=== PATIENT | female | born 1950 | race African-American/Black ===

== ENCOUNTER 2018-04-23 09:25 | Emergency (ER) | payer BC ==
[2018-04-23] MEDS: HYDROcodone/APAP 5/325MG 1 TAB TABLET PO (10:31)
[2018-04-23] MEDS: NAPROXEN 500 MG TABLET PO (10:31)
[2018-04-23] MEDS: diazePAM 5 MG TABLET PO (10:32)
== END 2018-04-23 11:10 | disposition home or self-care (01) ==
LOC: ER 09:25
DX: S13.9XXA Sprain of joints and ligaments of unspecified parts of neck, initial encounter (principal); S46.912A Strain of unspecified muscle, fascia and tendon at shoulder and upper arm level, left arm, initial encounter; M47.894 Other spondylosis, thoracic region; M47.892 Other spondylosis, cervical region; M19.012 Primary osteoarthritis, left shoulder; E11.9 Type 2 diabetes mellitus without complications; I10 Essential (primary) hypertension; G47.30 Sleep apnea, unspecified; Z98.51 Tubal ligation status; X50.0XXA Overexertion from strenuous movement or load, initial encounter; Y93.89 Activity, other specified; Y92.59 Other trade areas as the place of occurrence of the external cause; Y99.8 Other external cause status
CPT/HCPCS: 72040; 72072; 73030; 99284

== ENCOUNTER 2020-01-12 10:54 | Inpatient (IN) | payer BC ==
[~2020-01-12] VITALS: Ht 157.5 cm; Wt 75.3 kg
[~2020-01-12 10:54] MED LIST: AMLO10TA4 PO; CARV25TA PO; CRESTOR40 MG PO; CYCL10TA2 PO; EZET10TA20 PO; GLYB5TAB3 PO; HYDR-3164 PO; METF10007 PO; NAPR-695 PO; SPIR25TA5 PO; VALS1TAB18 PO; VERA240C2 PO
[2020-01-12] MEDS ORDERED: IV NORMAL SALINE 1000ML BAG 1,000 ML IV SCH (11:18)
[2020-01-12] MEDS ORDERED: methylPREDNISolone SOD SUCC PF 125 MG/2 ML VIAL. IV ONE (11:30)
[2020-01-12] MEDS ORDERED: IPRATRPIUM/ALBUTEROL 0.5/2.5MG 3 ML NEBU. NEB ONE (11:30)
[2020-01-12] MEDS ORDERED: ACETAMINOPHEN 500 MG TABLET PO ONE (11:30)
[2020-01-12 11:52] LABS: BASO % 1 % (0-3); EOS % 0 % (0-3); HEMATOCRIT 37.5 % (36.0-47.0); HEMOGLOBIN 12.4 g/dL (12.0-15.5); LYMPH # 0.5 x10^3/uL (1.0-4.8); LYMPH % 12 % (24-48); MEAN CORPUSCULAR HEMOGLOBIN 31 pg (25-35); MEAN CORPUSCULAR HGB CONC 33 g/dL (31-37); MEAN CORPUSCULAR VOLUME 93 fL (79-100); MONO # 0.5 x10^3/uL (0.0-1.1); MONO % 11 % (0-9); NEUT # 3.4 x10^3/uL (1.8-7.7); NEUT % 76 % (31-73); PLATELET COUNT 177 x10^3/uL (140-400); RED BLOOD COUNT 4.03 x10^6/uL (3.50-5.40); RED CELL DISTRIBUTION WIDTH 13.9 % (11.5-14.5); WHITE BLOOD COUNT 4.5 x10^3/uL (4.0-11.0)
[2020-01-12 11:58] LABS: INFLUENZA A PATIENT POSITIVE (NEGATIVE); INFLUENZA B PATIENT NEGATIVE (NEGATIVE)
--- NOTE | 2020-01-12 11:59 | RAD ---
EXAM: PORTABLE CHEST 1V INDICATION: Cough and fever. TECHNIQUE: Portable upright AP view COMPARISON: 04/29/2016 FINDINGS: The heart size is normal. Great vessels again show tortuosity to the thoracic aorta. There is prominence to the suprahilar vessels, likely reflecting tortuosity of the innominate and subclavian vessels on the right. This is similar to prior. There is no hilar or mediastinal mass. The lungs are clear. There is no pleural effusion or pneumothorax. There are no significant osseous abnormalities. IMPRESSION: No active cardiopulmonary disease. Electronically signed by: Robyn Schmitz MD (01/12/2020 11:56 AM) [facility]
[2020-01-12 12:00] LABS: PROTHROMBIN TIME PATIENT 13.5 SEC (11.7-14.0)
[2020-01-12 12:02] LABS: CALCIUM 9.5 mg/dL (8.5-10.1); CREATININE 1.8 mg/dL (0.6-1.0); GFR 33.8
[2020-01-12 12:07] LABS: ALBUMIN 3.8 g/dL (3.4-5.0); MAGNESIUM 1.8 mg/dL (1.8-2.4); TOTAL BILIRUBIN 0.6 mg/dL (0.2-1.0); TOTAL PROTEIN 7.6 g/dL (6.4-8.2)
[2020-01-12] MEDS ORDERED: POTASSIUM CHLORIDE 20 MEQ TABLET.ER. PO ONE (12:45)
[2020-01-12] MEDS ORDERED: OSELTAMIVIR 30 MG CAPSULE PO ONE (13:00)
--- NOTE | 2020-01-12 13:31 | EKG ---
[facility] [address] [place] [address] Test Date: 2020-01-12 Test Time: 12:39:46 Pat Name: ANKUR TEJEDA Department: Room: Gender: F Digester: : 1950 Requested By: RUDDY RODRIGUEZ Order Number: [id number] Reading MD: Measurements Intervals [address] Rate: 107 P: -3 MT: 130 QRS: -28 QRSD: 80 T: 94 QT: 380 QTc: 513 Interpretive Statements SINUS TACHYCARDIA LEFT ATRIAL ABNORMALITY LEFTWARD AXIS T ABNORMALITY IN HIGH LATERAL LEADS NON SPECIFIC ST DEPRESSION ABNORMAL ECG No previous ECG available for comparison
--- NOTE | 2020-01-12 15:17 | PHYS DOC ---
Past Medical History Past Medical History: Diabetes-Type II, Hypertension, Other Additional Past Medical Histor: SLEEP APNEA Past Surgical History: Tubal ligation Additional Past Surgical Histo: PARTIAL TUBAL Smoking Status: Never Smoker Alcohol Use: None Drug Use: None Adult General Chief Complaint Chief Complaint: FLU SYMPTOM HPI HPI Patient is a 69 year old female with history of hypertension, diabetes type 2, who presents to the ED today complaining of a cough, body aches, chills, intermittent generalized headache, symptoms began 2 days ago. Patient denies any chest pain or shortness of breath. She reports that has been is admitted at [facility] for influenza. Review of Systems Review of Systems Constitutional: Reports subjective fevers, body aches, chills Eyes: Denies change in visual acuity, redness, or eye pain [] HENT: Denies nasal congestion or sore throat [] Respiratory: Reports cough, denies shortness of breath [] Cardiovascular: No additional information not addressed in HPI [] GI: Denies abdominal pain, nausea, vomiting, bloody stools or diarrhea [] : Denies dysuria or hematuria [] Musculoskeletal: Denies back pain or joint pain [] Integument: Denies rash or skin lesions [] Neurologic: Denies headache, focal weakness or sensory changes [] All other systems were reviewed and found to be within normal limits, except as documented in this note. Current Medications Current Medications Current Medications Medications (Trade) Dose Ordered Sig/Brandon Start Time Stop Time Status Last Admin Dose Admin Acetaminophen (Tylenol) 1,000 mg 1X ONCE 01/12/20 11:30 01/12/20 11:31 DC 01/12/20 11:30 1,000 MG Albuterol/ Ipratropium (Duoneb) 3 ml 1X ONCE 01/12/20 11:30 01/12/20 11:31 DC 01/12/20 12:16 3 ML Methylprednisolone Sodium Succinate (SOLU-Medrol 125MG VIAL) 125 mg 1X ONCE 01/12/20 11:30 01/12/20 11:31 DC 01/12/20 11:30 125 MG Ondansetron HCl (Zofran) 4 mg PRN Q8HRS PRN 01/12/20 15:30 01/13/20 15:29 UNV Oseltamivir Phosphate (Tamiflu) 30 mg 1X ONCE 01/12/20 13:00 01/12/20 13:01 DC 01/12/20 13:00 30 MG Potassium Chloride (Klor-Con) 40 meq 1X ONCE 01/12/20 12:45 01/12/20 12:56 DC 01/12/20 12:45 40 MEQ Sodium Chloride 1,000 ml @ 1,500 mls/hr Q40M 01/12/20 11:18 01/12/20 12:17 DC 01/12/20 11:18 1,500 MLS/HR Allergies Allergies Allergies Coded Allergies Type Severity Reaction Last Updated Verified No Known Drug Allergies 04/29/16 No Physical Exam Physical Exam Constitutional: Tired appearing patient. Well developed, well nourished, no acute distress, non-toxic appearance. [] HENT: Normocephalic, atraumatic, bilateral external ears normal, oropharynx moist, no oral exudates, nose normal. [] Eyes: PERRLA, EOMI, conjunctiva normal, no discharge. [] Neck: Normal range of motion, no tenderness, supple, no stridor. [] Cardiovascular:Heart rate regular rhythm, no murmur [] Lungs & Thorax: Bilateral breath sounds clear to auscultation [] Abdomen: Bowel sounds normal, soft, no tenderness, no masses, no pulsatile masses. [] Skin: Warm, dry, no erythema, no rash. [] Back: No tenderness, no CVA tenderness. [] Extremities: No tenderness, no cyanosis, no clubbing, ROM intact, no edema. [] Neurologic: Alert and oriented X 3, normal motor function, normal sensory function, no focal deficits noted. [] Psychologic: Affect normal, judgement normal, mood normal. [] Current Patient Data Vital Signs Vital Signs Date Time Temp Pulse Resp B/P (MAP) Pulse Ox O2 Delivery O2 Flow Rate FiO2 01/12/20 12:17 92 Room Air 01/12/20 11:12 100.0 117 18 153/96 (115) 100.0 Lab Values Laboratory Tests Test 01/12/20 11:20 01/12/20 11:40 Influenza Type A Antigen Positive (NEGATIVE) Influenza Type B Antigen Negative (NEGATIVE) White Blood Count 4.5 x10^3/uL (4.0-11.0) Red Blood Count 4.03 x10^6/uL (3.50-5.40) Hemoglobin 12.4 g/dL (12.0-15.5) Hematocrit 37.5 % (36.0-47.0) Mean Corpuscular Volume 93 fL (79-100) Mean Corpuscular Hemoglobin 31 pg (25-35) Mean Corpuscular Hemoglobin Concent 33 g/dL (31-37) Red Cell Distribution Width 13.9 % (11.5-14.5) Platelet Count 177 x10^3/uL (140-400) Neutrophils (%) (Auto) 76 % (31-73) H Lymphocytes (%) (Auto) 12 % (24-48) L Monocytes (%) (Auto) 11 % (0-9) H Eosinophils (%) (Auto) 0 % (0-3) Basophils (%) (Auto) 1 % (0-3) Neutrophils # (Auto) 3.4 x10^3/uL (1.8-7.7) Lymphocytes # (Auto) 0.5 x10^3/uL (1.0-4.8) L Monocytes # (Auto) 0.5 x10^3/uL (0.0-1.1) Eosinophils # (Auto) 0.0 x10^3/uL (0.0-0.7) Basophils # (Auto) 0.0 x10^3/uL (0.0-0.2) Prothrombin Time 13.5 SEC (11.7-14.0) Prothrombin Time INR 1.1 (0.8-1.1) Activated Partial Thromboplast Time 28 SEC (24-38) Sodium Level 136 mmol/L (136-145) Potassium Level 3.0 mmol/L (3.5-5.1) L Chloride Level 96 mmol/L (98-107) L Carbon Dioxide Level 31 mmol/L (21-32) Anion Gap 9 (6-14) Blood Urea Nitrogen 20 mg/dL (7-20) Creatinine 1.8 mg/dL (0.6-1.0) H Estimated GFR (Cockcroft-Gault) 33.8 BUN/Creatinine Ratio 11 (6-20) Glucose Level 290 mg/dL (70-99) H Lactic Acid Level 2.4 mmol/L (0.4-2.0) H Calcium Level 9.5 mg/dL (8.5-10.1) Magnesium Level 1.8 mg/dL (1.8-2.4) Total Bilirubin 0.6 mg/dL (0.2-1.0) Aspartate Amino Transferase (AST) 26 U/L (15-37) Alanine Aminotransferase (ALT) 27 U/L (14-59) Alkaline Phosphatase 106 U/L (46-116) Creatine Kinase 186 U/L (26-192) Creatine Kinase MB (Mass) 0.6 ng/mL (0.0-3.6) Creatine Kinase MB Relative Index 0.3 % (0-4) Troponin I Quantitative < 0.017 ng/mL (0.000-0.055) RK-Bbz-R-Type Natriuretic Peptide 380 pg/mL (0-124) H Total Protein 7.6 g/dL (6.4-8.2) Albumin 3.8 g/dL (3.4-5.0) Albumin/Globulin Ratio 1.0 (1.0-1.7) Procalcitonin 0.22 ng/mL (0.00-0.10) H Thyroid Stimulating Hormone (TSH) 1.373 uIU/mL (0.358-3.74) Laboratory Tests 01/12/20 11:40 Laboratory Tests 01/12/20 11:40 EKG EKG [address] Billingsley sinus tachycardia HR 107 no STEMI Radiology/Procedures Radiology/Procedures []PROCEDURE: PORTABLE CHEST 1V EXAM: PORTABLE CHEST 1V INDICATION: Cough and fever. TECHNIQUE: Portable upright AP view COMPARISON: 04/29/2016 FINDINGS: The heart size is normal. Great vessels again show tortuosity to the thoracic aorta. There is prominence to the suprahilar vessels, likely reflecting tortuosity of the innominate and subclavian vessels on the right. This is similar to prior. There is no hilar or mediastinal mass. The lungs are clear. There is no pleural effusion or pneumothorax. There are no significant osseous abnormalities. IMPRESSION: No active cardiopulmonary disease. Electronically signed by: Ragini Schmitz MD (01/12/2020 11:56 AM) [facility] DICTATED and SIGNED BY: RAGINI SCHMITZ MD DATE: 01/12/20 8489 Course & Med Decision Making Course & Med Decision Making Pertinent Labs and Imaging studies reviewed. (See chart for details) This is a 69-year-old female patient presenting to the ED today with subjective fevers, body aches, cough, symptoms began yesterday. Vitals on arrival to the ED temperature 100.0, heart rate 117, blood pressure 153/96, O2 sats 95% on room air. Chest x-ray interpreted by radiologist as negative for any acute findings, CBC with a normal WBC, CMP with glucose of 290, history of diabetes type 2, lactic acid 2.4. Potassium 3.0, patient was given oral potassium replacement. Positive for influenza A. Started on Tamiflu Patient was given IV fluids per sepsis protocol. We did not give any antibiotics because the source of infection viral. Spoke with Dr. Maradiaga who accepted patient for admission. Dragon Disclaimer Dragon Disclaimer This electronic medical record was generated, in whole or in part, using a voice recognition dictation system. Departure Departure Impression: Primary Impression: Hyperglycemia Additional Impressions: Influenza A Fever Disposition: 09 ADMITTED INPATIENT Condition: STABLE Referrals: LESIA RODRIGUEZ MD (PCP) Problem Qualifiers Additional Impressions: Fever Fever type: unspecified Qualified Codes: R50.9 - Fever, unspecified MUTUNGA,RUDDY INFORMATION SYSTEMS CONSULTANT Jan 12, 2020 15:17
[2020-01-12] MEDS ORDERED: ONDANSETRON PF 4 MG/2 ML VIAL. IV PRN (15:30)
[2020-01-12] MEDS ORDERED: ACETAMINOPHEN 325 MG TABLET. PO PRN (15:30)
[2020-01-12] MEDS ORDERED: IV NORMAL SALINE 1000ML BAG 1,000 ML IV ONE (15:30)
--- NOTE | 2020-01-12 16:23 | HP ---
ADMIT DATE: 01/12/2020 CHIEF COMPLAINT: Flu symptoms. HISTORY OF PRESENT ILLNESS: The patient is a pleasant 69-year-old female who presented with flu symptoms. She has got cough, body aches, intermittent chills, subjective fevers, has been occurring for a couple of days. We checked her for flu. She is flu A positive. I discussed the case with ER physician. We are going to admit the patient, give her fluids and Tamiflu. PAST MEDICAL HISTORY: Diabetes, hypertension, sleep apnea, tubal ligation. ALLERGIES: None. FAMILY HISTORY: Hypertension. SOCIAL HISTORY: She does not drink, smoke or take drugs. MEDICATIONS: Reviewed, please refer to the MRAD. REVIEW OF SYSTEMS: GENERAL: She complains of body aches and chills. SKIN: No bruising, hair changes or rashes. EYES: No blurred, double or loss of vision. NOSE AND THROAT: No history of nosebleeds, hoarseness or sore throat. HEART: No history of palpitations, chest pain or shortness of breath on exertion. LUNGS: She complains of cough. GASTROINTESTINAL: She complains of abdominal pain. GENITOURINARY: No history of frequency, urgency, hesitancy or nocturia. NEUROLOGIC: Denies history of numbness, tingling, tremor or weakness. PSYCHIATRIC: No history of panic, anxiety or depression. ENDOCRINE: No history of heat or cold intolerance, polyuria or polydipsia. EXTREMITIES: Denies muscle weakness, joint pain, pain on walking or stiffness. PHYSICAL EXAMINATION: VITALS: Within normal limits and are stable. GENERAL: No apparent distress. Alert and oriented. HEENT: Normal cephalic atraumatic, external auditory canals are patent EYES: Extraocular muscles are intact, pupils are equally round and reactive to light and accommodation MUSKULOSKELETAL: Well developed, well nourished, good range of motion ENDOCRINE: No thyromegaly was palpated LYMPHATICS: No cervical chain or axillary nodes were noted HEMATOPOIETIC: No bruising NECK: Supple, no JVD, no thyromegaly was noted. LUNGS: Clear to auscultation in all lung romero without rhonchi or wheezing. HEART: RRR, S1, S2 present. Peripheral pulses intact, no obvious murmurs were noted. ABDOMEN: Soft, nontender. Positive bowel sounds no organomegaly, normal bowel sounds. EXTREMITIES: Without any cyanosis, clubbing, or edema. Pedal pulses intact, Homans sign is negative. NEUROLOGIC: Normal speech, normal tone. A & O x3, moves all extremities, no obvious focal deficits. PSYCHIATRIC: Normal affect, normal mood. Stable. SKIN: No ulcerations or rashes, good skin turgor, no jaundice. VASCULAR: Good capillary refill, neurovascular bundle appears to be intact. LABORATORY DATA: Hematology is normal. Electrolytes are normal. Serology was positive for influenza A. ASSESSMENT AND PLAN: Influenza with flu syndrome. The patient will be admitted. We will give IV fluids, Tamiflu 75 p.o. b.i.d. Home meds, DVT prophylaxis. Full code. LUCHO VICENTE DO DR: DAQUAN/azalia JOB#: [id number] / [id number]
[2020-01-12] MEDS ORDERED: POTA10TA6 PO (18:39)
[2020-01-12] MEDS ORDERED: METF500T16 PO (18:39)
[2020-01-12 19:00] VITALS: BP 162/102
[2020-01-12] MEDS: OSELTAMIVIR 30 MG CAPSULE PO SCH (21:09)
[2020-01-12 23:00] VITALS: BP 150/100
[2020-01-13 03:00] VITALS: BP 169/108
[2020-01-13 04:29] LABS: BASO % 0 % (0-3); EOS % 0 % (0-3); HEMATOCRIT 32.4 % (36.0-47.0); LYMPH # 0.7 x10^3/uL (1.0-4.8); LYMPH % 16 % (24-48); MEAN CORPUSCULAR HEMOGLOBIN 31 pg (25-35); MEAN CORPUSCULAR HGB CONC 34 g/dL (31-37); MEAN CORPUSCULAR VOLUME 93 fL (79-100); MONO # 0.4 x10^3/uL (0.0-1.1); MONO % 10 % (0-9); NEUT # 3.2 x10^3/uL (1.8-7.7); NEUT % 74 % (31-73); PLATELET COUNT 148 x10^3/uL (140-400); RED BLOOD COUNT 3.49 x10^6/uL (3.50-5.40); RED CELL DISTRIBUTION WIDTH 13.4 % (11.5-14.5); WHITE BLOOD COUNT 4.3 x10^3/uL (4.0-11.0)
[2020-01-13 05:01] LABS: CALCIUM 8.8 mg/dL (8.5-10.1); CREATININE 1.5 mg/dL (0.6-1.0); GFR 41.7; POTASSIUM 3.3 mmol/L (3.5-5.1)
[2020-01-13 07:00] VITALS: BP 186/112
[2020-01-13] MEDS ORDERED: INSU100V2 SQ (07:30)
[2020-01-13] MEDS ORDERED: INSU100V6 SQ (07:30)
[2020-01-13] MEDS: OSELTAMIVIR 30 MG CAPSULE PO SCH ×2 (08:03→21:24)
[2020-01-13] MEDS: amLODIPine BESYLATE 10 MG TABLET PO SCH (08:04)
[2020-01-13] MEDS: hydroCHLOROthiazide 12.5 MG CAPSULE PO SCH (08:04)
[2020-01-13] MEDS: CARVEDILOL 12.5 MG TABLET. PO SCH ×2 (08:04→18:30)
[2020-01-13] MEDS: LOSARTAN POTASSIUM 50 MG TABLET. PO SCH (08:05)
[2020-01-13] MEDS: INSULIN LISPRO 300 UNITS/3 ML VIAL. SQ SCH ×2 (09:37→18:35)
[2020-01-13 11:00] VITALS: BP 138/83
--- NOTE | 2020-01-13 13:05 | PDOC ---
[employer] PROGRESS NOTE Chief Complaint Chief Complaint Influenza, Type A History of Present Illness History of Present Illness 01/13/2020 -Pt seen and examined. -Chart reviewed and care discussed with nursing staff. -Pt resting comfortably in bed, NAD. Continues to reports body aches. Will monitor progress. Vitals/I&O Vitals/I&O: Vital Signs Date Time Temp Pulse Resp B/P (MAP) Pulse Ox O2 Delivery O2 Flow Rate FiO2 01/13/20 08:05 80 186/112 01/13/20 07:00 98.1 16 97 Room Air 98.1 I & O 01/12/20 01/12/20 01/13/20 15:00 23:00 07:00 Intake Total 1200 ml 400 ml Balance 1200 ml 400 ml Physical Exam General: Alert, Oriented X3, Cooperative Heart: Regular rate, No murmurs Lungs: Clear Abdomen: Normal bowel sounds, Soft Extremities: No clubbing, No cyanosis Skin: No rashes Labs Labs: Laboratory Tests Test 01/12/20 15:19 01/12/20 20:51 01/13/20 03:25 01/13/20 07:21 Lactic Acid Level 1.6 mmol/L (0.4-2.0) Glucose (Fingerstick) 337 mg/dL (70-99) 221 mg/dL (70-99) White Blood Count 4.3 x10^3/uL (4.0-11.0) Red Blood Count 3.49 x10^6/uL (3.50-5.40) Hemoglobin 11.0 g/dL (12.0-15.5) Hematocrit 32.4 % (36.0-47.0) Mean Corpuscular Volume 93 fL (79-100) Mean Corpuscular Hemoglobin 31 pg (25-35) Mean Corpuscular Hemoglobin Concent 34 g/dL (31-37) Red Cell Distribution Width 13.4 % (11.5-14.5) Platelet Count 148 x10^3/uL (140-400) Neutrophils (%) (Auto) 74 % (31-73) Lymphocytes (%) (Auto) 16 % (24-48) Monocytes (%) (Auto) 10 % (0-9) Eosinophils (%) (Auto) 0 % (0-3) Basophils (%) (Auto) 0 % (0-3) Neutrophils # (Auto) 3.2 x10^3/uL (1.8-7.7) Lymphocytes # (Auto) 0.7 x10^3/uL (1.0-4.8) Monocytes # (Auto) 0.4 x10^3/uL (0.0-1.1) Eosinophils # (Auto) 0.0 x10^3/uL (0.0-0.7) Basophils # (Auto) 0.0 x10^3/uL (0.0-0.2) Sodium Level 139 mmol/L (136-145) Potassium Level 3.3 mmol/L (3.5-5.1) Chloride Level 103 mmol/L (98-107) Carbon Dioxide Level 26 mmol/L (21-32) Anion Gap 10 (6-14) Blood Urea Nitrogen 28 mg/dL (7-20) Creatinine 1.5 mg/dL (0.6-1.0) Estimated GFR (Cockcroft-Gault) 41.7 Glucose Level 286 mg/dL (70-99) Calcium Level 8.8 mg/dL (8.5-10.1) Test 01/13/20 11:31 Glucose (Fingerstick) 123 mg/dL (70-99) Review of Systems Review of Systems: Denies Chest pain or SOA Assessment and Plan Assessmemt and Plan Problems Medical Problems: (1) Fever Status: Acute (2) Hyperglycemia Status: Acute (3) Influenza A Status: Acute ASSESSMENT Influenza, Type A PLAN: -Continue Tamiflu -Continue IVF support -Continue Home meds -Repeat labs -PT/OT -DVT ppx -Full code. Comment Review of Relevant I have reviewed the following items chichi (where applicable) has been applied. Medications: Current Medications Medications (Trade) Dose Ordered Sig/Brandon Route PRN Reason Start Time Stop Time Status Last Admin Dose Admin Acetaminophen (Tylenol) 650 mg PRN Q4HRS PRN PO FEVER 01/12/20 15:30 01/13/20 15:29 01/12/20 18:30 Sodium Chloride 1,000 ml @ 75 mls/hr 1X ONCE IV 01/12/20 15:30 01/13/20 04:49 DC 01/12/20 15:30 Oseltamivir Phosphate (Tamiflu) 30 mg BID PO 01/12/20 21:00 01/16/20 21:01 01/13/20 08:03 Amlodipine Besylate (Norvasc) 10 mg DAILY PO 01/13/20 09:00 01/13/20 08:04 Carvedilol (Coreg) 25 mg BIDWMEALS PO 01/13/20 08:00 01/13/20 08:04 Hydrochlorothiazide (Microzide) 12.5 mg DAILY PO 01/13/20 09:00 01/13/20 08:04 Losartan Potassium (Cozaar) 100 mg DAILY PO 01/13/20 09:00 01/13/20 08:05 Insulin Human Lispro (HumaLOG) 50 units [id number] SQ 01/13/20 09:00 01/13/20 09:37 LUCHO VICENTE III DO Jan 13, 2020 13:05
[2020-01-13 15:00] VITALS: BP 120/77
[2020-01-13 19:00] VITALS: BP 100/67
[2020-01-13 23:00] VITALS: BP 110/68
[2020-01-14 03:00] VITALS: BP 105/69
[2020-01-14 05:01] LABS: BASO % 0 % (0-3); EOS # 0.1 x10^3/uL (0.0-0.7); EOS % 2 % (0-3); HEMATOCRIT 31.2 % (36.0-47.0); HEMOGLOBIN 10.7 g/dL (12.0-15.5); LYMPH # 1.5 x10^3/uL (1.0-4.8); LYMPH % 37 % (24-48); MEAN CORPUSCULAR HEMOGLOBIN 32 pg (25-35); MEAN CORPUSCULAR HGB CONC 34 g/dL (31-37); MEAN CORPUSCULAR VOLUME 92 fL (79-100); MONO # 0.4 x10^3/uL (0.0-1.1); MONO % 9 % (0-9); NEUT # 2.1 x10^3/uL (1.8-7.7); NEUT % 52 % (31-73); PLATELET COUNT 150 x10^3/uL (140-400); RED BLOOD COUNT 3.37 x10^6/uL (3.50-5.40); RED CELL DISTRIBUTION WIDTH 13.9 % (11.5-14.5); WHITE BLOOD COUNT 4.1 x10^3/uL (4.0-11.0)
[2020-01-14 05:41] LABS: CALCIUM 8.7 mg/dL (8.5-10.1); CREATININE 1.5 mg/dL (0.6-1.0); GFR 41.7
[2020-01-14 06:09] LABS: POTASSIUM 2.9 mmol/L (3.5-5.1)
[2020-01-14] MEDS ORDERED: POTASSIUM CHLORIDE 20 MEQ TABLET.ER. PO ONE ×2 (07:00→13:30)
[2020-01-14 07:59] VITALS: BP 126/80
[2020-01-14] MEDS: CARVEDILOL 12.5 MG TABLET. PO SCH ×2 (08:00→17:24)
[2020-01-14] MEDS: OSELTAMIVIR 30 MG CAPSULE PO SCH ×2 (08:20→20:51)
[2020-01-14] MEDS: INSULIN LISPRO 300 UNITS/3 ML VIAL. SQ SCH ×2 (08:28→17:33)
[2020-01-14] MEDS: LOSARTAN POTASSIUM 50 MG TABLET. PO SCH (09:00)
[2020-01-14] MEDS: hydroCHLOROthiazide 12.5 MG CAPSULE PO SCH (09:00)
[2020-01-14] MEDS: amLODIPine BESYLATE 10 MG TABLET PO SCH (09:00)
[2020-01-14] MEDS: IV NORMAL SALINE 1000ML BAG 1,000 ML IV SCH (11:47)
[2020-01-14 11:59] VITALS: BP 108/68
[2020-01-14 13:03] LABS: CALCIUM 8.9 mg/dL (8.5-10.1); CREATININE 1.7 mg/dL (0.6-1.0); GFR 36.1
[2020-01-14 13:17] LABS: POTASSIUM 2.8 mmol/L (3.5-5.1)
--- NOTE | 2020-01-14 13:55 | PDOC ---
[employer] PROGRESS NOTE Chief Complaint Chief Complaint Influenza, Type A History of Present Illness History of Present Illness 01/13/2020 -Pt seen and examined. -Chart reviewed and care discussed with nursing staff. -Pt resting comfortably in bed, NAD. Continues to reports body aches. Will monitor progress. 01/14/2020 -Pt seen and examined. -Chart reviewed and care discussed with nursing staff. -Pt laying comfortably in bed NAD. She denies Body aches, saying she feels better. Her BP dropped to the 90s systolic after receiving a dose of carvedilol yesterday. She is normotensive now. She reports being on all 4 BP medications for a long time with out hypotensive episodes/dizziness. Vitals/I&O Vitals/I&O: Vital Signs Date Time Temp Pulse Resp B/P (MAP) Pulse Ox O2 Delivery O2 Flow Rate FiO2 01/14/20 11:59 98.5 75 20 108/68 (81) 96 Room Air 98.5 I & O 01/13/20 01/13/20 01/14/20 15:00 23:00 07:00 Intake Total 100 ml 460 ml 500 ml Balance 100 ml 460 ml 500 ml Physical Exam General: Alert, Oriented X3, Cooperative Heart: Regular rate, No murmurs Lungs: Clear Abdomen: Normal bowel sounds, Soft Extremities: No clubbing, No cyanosis Skin: No rashes Labs Labs: Laboratory Tests Test 01/13/20 16:58 01/13/20 21:35 01/14/20 03:35 01/14/20 08:00 Glucose (Fingerstick) 197 mg/dL (70-99) 90 mg/dL (70-99) 241 mg/dL (70-99) White Blood Count 4.1 x10^3/uL (4.0-11.0) Red Blood Count 3.37 x10^6/uL (3.50-5.40) Hemoglobin 10.7 g/dL (12.0-15.5) Hematocrit 31.2 % (36.0-47.0) Mean Corpuscular Volume 92 fL (79-100) Mean Corpuscular Hemoglobin 32 pg (25-35) Mean Corpuscular Hemoglobin Concent 34 g/dL (31-37) Red Cell Distribution Width 13.9 % (11.5-14.5) Platelet Count 150 x10^3/uL (140-400) Neutrophils (%) (Auto) 52 % (31-73) Lymphocytes (%) (Auto) 37 % (24-48) Monocytes (%) (Auto) 9 % (0-9) Eosinophils (%) (Auto) 2 % (0-3) Basophils (%) (Auto) 0 % (0-3) Neutrophils # (Auto) 2.1 x10^3/uL (1.8-7.7) Lymphocytes # (Auto) 1.5 x10^3/uL (1.0-4.8) Monocytes # (Auto) 0.4 x10^3/uL (0.0-1.1) Eosinophils # (Auto) 0.1 x10^3/uL (0.0-0.7) Basophils # (Auto) 0.0 x10^3/uL (0.0-0.2) Sodium Level 139 mmol/L (136-145) Potassium Level 2.9 mmol/L (3.5-5.1) Chloride Level 100 mmol/L (98-107) Carbon Dioxide Level 28 mmol/L (21-32) Anion Gap 11 (6-14) Blood Urea Nitrogen 33 mg/dL (7-20) Creatinine 1.5 mg/dL (0.6-1.0) Estimated GFR (Cockcroft-Gault) 41.7 Glucose Level 174 mg/dL (70-99) Calcium Level 8.7 mg/dL (8.5-10.1) Test 01/14/20 12:00 01/14/20 12:40 Glucose (Fingerstick) 96 mg/dL (70-99) Sodium Level 139 mmol/L (136-145) Potassium Level 2.8 mmol/L (3.5-5.1) Chloride Level 101 mmol/L (98-107) Carbon Dioxide Level 30 mmol/L (21-32) Anion Gap 8 (6-14) Blood Urea Nitrogen 32 mg/dL (7-20) Creatinine 1.7 mg/dL (0.6-1.0) Estimated GFR (Cockcroft-Gault) 36.1 Glucose Level 110 mg/dL (70-99) Calcium Level 8.9 mg/dL (8.5-10.1) Review of Systems Review of Systems: Denies Chest pain or SOA Assessment and Plan Assessmemt and Plan Problems Medical Problems: (1) Fever Status: Acute (2) Hyperglycemia Status: Acute (3) Influenza A Status: Acute ASSESSMENT: Influenza, Type A PLAN: -Potassium 40 meq, with recheck -Restart IVF at 75/hr -Hold Losartan, amlodipine, and HCTZ for now -Continue Carvedilol BID, recheck BP -Continue Tamiflu -Continue IVF support -Continue Home meds -Repeat labs -PT/OT -DVT ppx -Full code. Comment Review of Relevant I have reviewed the following items chichi (where applicable) has been applied. Medications: Current Medications Medications (Trade) Dose Ordered Sig/Brandon Route PRN Reason Start Time Stop Time Status Last Admin Dose Admin Insulin Human Lispro (HumaLOG) 35 units DAILYWSUP SQ 01/13/20 17:00 01/13/20 18:35 Potassium Chloride (Klor-Con) 40 meq 1X ONCE PO 01/14/20 07:00 01/14/20 07:01 DC 01/14/20 06:41 Sodium Chloride 1,000 ml @ 75 mls/hr [id number] IV 01/14/20 11:15 01/14/20 11:47 LUCHO VICENTE III DO Jan 14, 2020 13:55
[2020-01-14 15:59] VITALS: BP 146/80
[2020-01-14 19:00] VITALS: BP 125/74
[2020-01-14 23:00] VITALS: BP 110/68
[2020-01-15] MEDS: IV NORMAL SALINE 1000ML BAG 1,000 ML IV SCH ×2 (02:18→13:55)
[2020-01-15 03:00] VITALS: BP 96/58
[2020-01-15 05:25] LABS: CALCIUM 8.4 mg/dL (8.5-10.1); CREATININE 1.3 mg/dL (0.6-1.0); GFR 49.1; POTASSIUM 3.4 mmol/L (3.5-5.1)
[2020-01-15 05:35] LABS: BASO % 1 % (0-3); EOS # 0.2 x10^3/uL (0.0-0.7); EOS % 5 % (0-3); HEMOGLOBIN 10.2 g/dL (12.0-15.5); LYMPH # 1.5 x10^3/uL (1.0-4.8); LYMPH % 43 % (24-48); MEAN CORPUSCULAR HEMOGLOBIN 32 pg (25-35); MEAN CORPUSCULAR HGB CONC 34 g/dL (31-37); MEAN CORPUSCULAR VOLUME 93 fL (79-100); MONO # 0.3 x10^3/uL (0.0-1.1); MONO % 10 % (0-9); NEUT # 1.4 x10^3/uL (1.8-7.7); NEUT % 41 % (31-73); PLATELET COUNT 150 x10^3/uL (140-400); RED BLOOD COUNT 3.23 x10^6/uL (3.50-5.40); RED CELL DISTRIBUTION WIDTH 13.7 % (11.5-14.5); WHITE BLOOD COUNT 3.4 x10^3/uL (4.0-11.0)
[2020-01-15 07:00] VITALS: BP 167/93
[2020-01-15] MEDS: OSELTAMIVIR 30 MG CAPSULE PO SCH (08:20)
[2020-01-15] MEDS: CARVEDILOL 12.5 MG TABLET. PO SCH (08:20)
--- NOTE | 2020-01-15 08:22 | PDOC ---
PROGRESS NOTES Chief Complaint Chief Complaint Influenza, Type A DM2 HLD HTN History of Present Illness History of Present Illness Ms Merrill is a 69 year old female with history of hypertension, diabetes type 2, who presents to the ED 01/12/2020 complaining of a cough, body aches, chills, intermittent generalized headache, symptoms began 2 days ago. Patient denies any chest pain or shortness of breath. She reports that her with has been is admitted at [facility] for [facility]. She tested positive for influenza A. : Pt resting comfortably in bed, NAD. Continues to reports body aches. Will monitor progress. 01/13:Pt laying comfortably in bed NAD. She denies Body aches, saying she feels better. Her BP dropped to the 90s systolic after receiving a dose of carvedilol yesterday. She is normotensive now. She reports being on all 4 BP medications for a long time with out hypotensive episodes/dizziness. Feeling much better, insulin and BP meds adjusted. She wishes to go home to recover. Slept well last night. Vitals Vitals Vital Signs Date Time Temp Pulse Resp B/P (MAP) Pulse Ox O2 Delivery O2 Flow Rate FiO2 01/15/20 03:00 97.1 63 16 96/58 (71) 96 Room Air 97.1 Physical Exam General: Alert, Oriented X3, Cooperative Heart: Regular rate, No murmurs Lungs: Clear Abdomen: Normal bowel sounds, Soft Extremities: No clubbing, No cyanosis Skin: No rashes Labs LABS Laboratory Tests Test 01/14/20 12:00 01/14/20 12:40 01/14/20 17:23 01/14/20 20:17 Glucose (Fingerstick) 96 mg/dL (70-99) 210 mg/dL (70-99) 175 mg/dL (70-99) Sodium Level 139 mmol/L (136-145) Potassium Level 2.8 mmol/L (3.5-5.1) Chloride Level 101 mmol/L (98-107) Carbon Dioxide Level 30 mmol/L (21-32) Anion Gap 8 (6-14) Blood Urea Nitrogen 32 mg/dL (7-20) Creatinine 1.7 mg/dL (0.6-1.0) Estimated GFR (Cockcroft-Gault) 36.1 Glucose Level 110 mg/dL (70-99) Calcium Level 8.9 mg/dL (8.5-10.1) Test 01/15/20 03:45 01/15/20 03:48 01/15/20 08:05 Sodium Level 141 mmol/L (136-145) Potassium Level 3.4 mmol/L (3.5-5.1) Chloride Level 105 mmol/L (98-107) Carbon Dioxide Level 26 mmol/L (21-32) Anion Gap 10 (6-14) Blood Urea Nitrogen 27 mg/dL (7-20) Creatinine 1.3 mg/dL (0.6-1.0) Estimated GFR (Cockcroft-Gault) 49.1 Glucose Level 200 mg/dL (70-99) Calcium Level 8.4 mg/dL (8.5-10.1) White Blood Count 3.4 x10^3/uL (4.0-11.0) Red Blood Count 3.23 x10^6/uL (3.50-5.40) Hemoglobin 10.2 g/dL (12.0-15.5) Hematocrit 30.0 % (36.0-47.0) Mean Corpuscular Volume 93 fL (79-100) Mean Corpuscular Hemoglobin 32 pg (25-35) Mean Corpuscular Hemoglobin Concent 34 g/dL (31-37) Red Cell Distribution Width 13.7 % (11.5-14.5) Platelet Count 150 x10^3/uL (140-400) Neutrophils (%) (Auto) 41 % (31-73) Lymphocytes (%) (Auto) 43 % (24-48) Monocytes (%) (Auto) 10 % (0-9) Eosinophils (%) (Auto) 5 % (0-3) Basophils (%) (Auto) 1 % (0-3) Neutrophils # (Auto) 1.4 x10^3/uL (1.8-7.7) Lymphocytes # (Auto) 1.5 x10^3/uL (1.0-4.8) Monocytes # (Auto) 0.3 x10^3/uL (0.0-1.1) Eosinophils # (Auto) 0.2 x10^3/uL (0.0-0.7) Basophils # (Auto) 0.0 x10^3/uL (0.0-0.2) Glucose (Fingerstick) 229 mg/dL (70-99) Assessment and Plan Assessmemt and Plan Problems Medical Problems: (1) Fever Status: Acute (2) Hyperglycemia Status: Acute (3) Influenza A Status: Acute Comment Review of Relevant I have reviewed the following items chichi (where applicable) has been applied. Labs Laboratory Tests Test 01/13/20 11:31 01/13/20 16:58 01/13/20 21:35 01/14/20 03:35 Glucose (Fingerstick) 123 mg/dL (70-99) 197 mg/dL (70-99) 90 mg/dL (70-99) White Blood Count 4.1 x10^3/uL (4.0-11.0) Red Blood Count 3.37 x10^6/uL (3.50-5.40) Hemoglobin 10.7 g/dL (12.0-15.5) Hematocrit 31.2 % (36.0-47.0) Mean Corpuscular Volume 92 fL (79-100) Mean Corpuscular Hemoglobin 32 pg (25-35) Mean Corpuscular Hemoglobin Concent 34 g/dL (31-37) Red Cell Distribution Width 13.9 % (11.5-14.5) Platelet Count 150 x10^3/uL (140-400) Neutrophils (%) (Auto) 52 % (31-73) Lymphocytes (%) (Auto) 37 % (24-48) Monocytes (%) (Auto) 9 % (0-9) Eosinophils (%) (Auto) 2 % (0-3) Basophils (%) (Auto) 0 % (0-3) Neutrophils # (Auto) 2.1 x10^3/uL (1.8-7.7) Lymphocytes # (Auto) 1.5 x10^3/uL (1.0-4.8) Monocytes # (Auto) 0.4 x10^3/uL (0.0-1.1) Eosinophils # (Auto) 0.1 x10^3/uL (0.0-0.7) Basophils # (Auto) 0.0 x10^3/uL (0.0-0.2) Sodium Level 139 mmol/L (136-145) Potassium Level 2.9 mmol/L (3.5-5.1) Chloride Level 100 mmol/L (98-107) Carbon Dioxide Level 28 mmol/L (21-32) Anion Gap 11 (6-14) Blood Urea Nitrogen 33 mg/dL (7-20) Creatinine 1.5 mg/dL (0.6-1.0) Estimated GFR (Cockcroft-Gault) 41.7 Glucose Level 174 mg/dL (70-99) Calcium Level 8.7 mg/dL (8.5-10.1) Test 01/14/20 08:00 01/14/20 12:00 01/14/20 12:40 01/14/20 17:23 Glucose (Fingerstick) 241 mg/dL (70-99) 96 mg/dL (70-99) 210 mg/dL (70-99) Sodium Level 139 mmol/L (136-145) Potassium Level 2.8 mmol/L (3.5-5.1) Chloride Level 101 mmol/L (98-107) Carbon Dioxide Level 30 mmol/L (21-32) Anion Gap 8 (6-14) Blood Urea Nitrogen 32 mg/dL (7-20) Creatinine 1.7 mg/dL (0.6-1.0) Estimated GFR (Cockcroft-Gault) 36.1 Glucose Level 110 mg/dL (70-99) Calcium Level 8.9 mg/dL (8.5-10.1) Test 01/14/20 20:17 01/15/20 03:45 01/15/20 03:48 01/15/20 08:05 Glucose (Fingerstick) 175 mg/dL (70-99) 229 mg/dL (70-99) Sodium Level 141 mmol/L (136-145) Potassium Level 3.4 mmol/L (3.5-5.1) Chloride Level 105 mmol/L (98-107) Carbon Dioxide Level 26 mmol/L (21-32) Anion Gap 10 (6-14) Blood Urea Nitrogen 27 mg/dL (7-20) Creatinine 1.3 mg/dL (0.6-1.0) Estimated GFR (Cockcroft-Gault) 49.1 Glucose Level 200 mg/dL (70-99) Calcium Level 8.4 mg/dL (8.5-10.1) White Blood Count 3.4 x10^3/uL (4.0-11.0) Red Blood Count 3.23 x10^6/uL (3.50-5.40) Hemoglobin 10.2 g/dL (12.0-15.5) Hematocrit 30.0 % (36.0-47.0) Mean Corpuscular Volume 93 fL (79-100) Mean Corpuscular Hemoglobin 32 pg (25-35) Mean Corpuscular Hemoglobin Concent 34 g/dL (31-37) Red Cell Distribution Width 13.7 % (11.5-14.5) Platelet Count 150 x10^3/uL (140-400) Neutrophils (%) (Auto) 41 % (31-73) Lymphocytes (%) (Auto) 43 % (24-48) Monocytes (%) (Auto) 10 % (0-9) Eosinophils (%) (Auto) 5 % (0-3) Basophils (%) (Auto) 1 % (0-3) Neutrophils # (Auto) 1.4 x10^3/uL (1.8-7.7) Lymphocytes # (Auto) 1.5 x10^3/uL (1.0-4.8) Monocytes # (Auto) 0.3 x10^3/uL (0.0-1.1) Eosinophils # (Auto) 0.2 x10^3/uL (0.0-0.7) Basophils # (Auto) 0.0 x10^3/uL (0.0-0.2) Laboratory Tests Test 01/14/20 12:00 01/14/20 12:40 01/14/20 17:23 01/14/20 20:17 Glucose (Fingerstick) 96 mg/dL (70-99) 210 mg/dL (70-99) 175 mg/dL (70-99) Sodium Level 139 mmol/L (136-145) Potassium Level 2.8 mmol/L (3.5-5.1) Chloride Level 101 mmol/L (98-107) Carbon Dioxide Level 30 mmol/L (21-32) Anion Gap 8 (6-14) Blood Urea Nitrogen 32 mg/dL (7-20) Creatinine 1.7 mg/dL (0.6-1.0) Estimated GFR (Cockcroft-Gault) 36.1 Glucose Level 110 mg/dL (70-99) Calcium Level 8.9 mg/dL (8.5-10.1) Test 01/15/20 03:45 01/15/20 03:48 01/15/20 08:05 Sodium Level 141 mmol/L (136-145) Potassium Level 3.4 mmol/L (3.5-5.1) Chloride Level 105 mmol/L (98-107) Carbon Dioxide Level 26 mmol/L (21-32) Anion Gap 10 (6-14) Blood Urea Nitrogen 27 mg/dL (7-20) Creatinine 1.3 mg/dL (0.6-1.0) Estimated GFR (Cockcroft-Gault) 49.1 Glucose Level 200 mg/dL (70-99) Calcium Level 8.4 mg/dL (8.5-10.1) White Blood Count 3.4 x10^3/uL (4.0-11.0) Red Blood Count 3.23 x10^6/uL (3.50-5.40) Hemoglobin 10.2 g/dL (12.0-15.5) Hematocrit 30.0 % (36.0-47.0) Mean Corpuscular Volume 93 fL (79-100) Mean Corpuscular Hemoglobin 32 pg (25-35) Mean Corpuscular Hemoglobin Concent 34 g/dL (31-37) Red Cell Distribution Width 13.7 % (11.5-14.5) Platelet Count 150 x10^3/uL (140-400) Neutrophils (%) (Auto) 41 % (31-73) Lymphocytes (%) (Auto) 43 % (24-48) Monocytes (%) (Auto) 10 % (0-9) Eosinophils (%) (Auto) 5 % (0-3) Basophils (%) (Auto) 1 % (0-3) Neutrophils # (Auto) 1.4 x10^3/uL (1.8-7.7) Lymphocytes # (Auto) 1.5 x10^3/uL (1.0-4.8) Monocytes # (Auto) 0.3 x10^3/uL (0.0-1.1) Eosinophils # (Auto) 0.2 x10^3/uL (0.0-0.7) Basophils # (Auto) 0.0 x10^3/uL (0.0-0.2) Glucose (Fingerstick) 229 mg/dL (70-99) Microbiology 01/12/20 Blood Culture - Preliminary, Resulted NO GROWTH AFTER 2 DAYS Medications Current Medications Sodium Chloride 1,000 ml @ 1,500 mls/hr Q40M IV Last administered on 01/12/20at 11:18; Start 01/12/20 at 11:18; Stop 01/12/20 at 12:17; Status DC Albuterol/ Ipratropium (Duoneb) 3 ml 1X ONCE NEB Last administered on 01/12/20at 12:16; Start 01/12/20 at 11:30; Stop 01/12/20 at 11:31; Status DC Methylprednisolone Sodium Succinate (SOLU-Medrol 125MG VIAL) 125 mg 1X ONCE IV Last administered on 01/12/20at 11:30; Start 01/12/20 at 11:30; Stop 01/12/20 at 11:31; Status DC Acetaminophen (Tylenol) 1,000 mg 1X ONCE PO Last administered on 01/12/20at 11:30; Start 01/12/20 at 11:30; Stop 01/12/20 at 11:31; Status DC Oseltamivir Phosphate (Tamiflu) 30 mg 1X ONCE PO Last administered on 01/12/20at 13:00; Start 01/12/20 at 13:00; Stop 01/12/20 at 13:01; Status DC Potassium Chloride (Klor-Con) 40 meq 1X ONCE PO Last administered on 01/12/20at 12:45; Start 01/12/20 at 12:45; Stop 01/12/20 at 12:56; Status DC Ondansetron HCl (Zofran) 4 mg PRN Q8HRS PRN IV NAUSEA/VOMITING; Start 01/12/20 at 15:30; Stop 01/13/20 at 15:29; Status DC Acetaminophen (Tylenol) 650 mg PRN Q4HRS PRN PO FEVER Last administered on 01/12/20at 18:30; Start 01/12/20 at 15:30; Stop 01/13/20 at 15:29; Status DC Sodium Chloride 1,000 ml @ 75 mls/hr 1X ONCE IV Last administered on 01/12/20at 15:30; Start 01/12/20 at 15:30; Stop 01/13/20 at 04:49; Status DC Oseltamivir Phosphate (Tamiflu) 30 mg BID PO Last administered on 01/14/20at 20:51; Start 01/12/20 at 21:00; Stop 01/16/20 at 21:01 Amlodipine Besylate (Norvasc) 10 mg DAILY PO Last administered on 01/13/20at 08:04; Start 01/13/20 at 09:00; Stop 01/14/20 at 11:41; Status DC Carvedilol (Coreg) 25 mg BIDWMEALS PO Last administered on 01/14/20at 17:24; Start 01/13/20 at 08:00 Hydrochlorothiazide (Microzide) 12.5 mg DAILY PO Last administered on 01/13/20at 08:04; Start 01/13/20 at 09:00; Stop 01/14/20 at 11:41; Status DC Losartan Potassium (Cozaar) 100 mg DAILY PO Last administered on 01/13/20at 08:05; Start 01/13/20 at 09:00; Stop 01/14/20 at 11:57; Status DC Insulin Human Lispro (HumaLOG) 35 units DAILYWSUP SQ Last administered on 01/14/20at 17:33; Start 01/13/20 at 17:00 Insulin Human Lispro (HumaLOG) 50 units DAILYWBKFT SQ Last administered on 01/14/20at 08:28; Start 01/13/20 at 09:00 Potassium Chloride (Klor-Con) 40 meq 1X ONCE PO Last administered on 01/14/20at 06:41; Start 01/14/20 at 07:00; Stop 01/14/20 at 07:01; Status DC Sodium Chloride 1,000 ml @ 75 mls/hr [id number] IV Last administered on 01/15/20at 02:18; Start 01/14/20 at 11:15 Potassium Chloride (Klor-Con) 40 meq 1X ONCE PO Last administered on 01/14/20at 15:22; Start 01/14/20 at 13:30; Stop 01/14/20 at 13:31; Status DC Active Scripts Active Reported Humalog (Insulin Lispro) 100 Unit/1 Ml Vial 35 Unit SQ DAILYWSUP Humalog (Insulin Lispro) 100 Unit/1 Ml Vial 50 Unit SQ DAILYWBKFT Metformin Hcl 500 Mg Tablet 500 Mg PO BIDWMEALS Klor-Con 10 (Potassium Chloride) 10 Meq Tablet.er 10 Meq PO BID Norvasc (Amlodipine Besylate) 10 Mg Tablet 1 Tab PO DAILY Coreg (Carvedilol) 25 Mg Tablet 1 Tab PO BID Diovan Hct 320-12.5 Mg Tab (Valsartan/Hydrochlorothiazide) 1 Each Tablet 1 Tab PO DAILY Zetia (Ezetimibe) 10 Mg Tablet 1 Tab PO DAILY Crestor (Rosuvastatin Calcium) 40 Mg Tablet 1 Tab PO DAILY Vitals/I & O Vital Sign - Last 24 Hours 01/14/20 01/14/20 01/14/20 01/14/20 09:00 11:59 15:59 17:24 Temp 98.5 98.6 98.5 98.6 Pulse 75 75 73 92 Resp 20 20 B/P (MAP) 108/68 108/68 (81) 146/80 (102) 141/90 Pulse Ox 96 98 O2 Delivery Room Air Room Air 01/14/20 01/14/20 01/14/20 01/15/20 19:00 20:21 23:00 03:00 Temp 98.3 98.1 97.1 98.3 98.1 97.1 Pulse 74 78 63 Resp 16 17 16 B/P (MAP) 125/74 (91) 110/68 (82) 96/58 (71) Pulse Ox 96 96 96 O2 Delivery Room Air Room Air Room Air Room Air Intake and Output 01/14/20 01/14/20 01/15/20 15:00 23:00 07:00 Intake Total 400 ml 1100 ml Balance 400 ml 1100 ml BONG LIAO MD Jan 15, 2020 08:22
[2020-01-15] MEDS ORDERED: POTASSIUM CHLORIDE 10 MEQ TABLET.ER. PO SCH (08:30)
[2020-01-15] MEDS ORDERED: POTASSIUM CHLORIDE 20 MEQ TABLET.ER. PO ONE (08:30)
[2020-01-15] MEDS ORDERED: DEXTROSE 50% 25 GM / 50ML DISP.SYRIN. IV PRN (08:30)
[2020-01-15] MEDS ORDERED: INSULIN NPH/REG INSULIN 70/30 300 UNITS/3 ML INSULN.PEN. SQ SCH ×2 (09:00)
[2020-01-15 09:31] LABS: PLT ESTIMATE ADEQUATE (ADEQUATE)
[2020-01-15 11:00] VITALS: BP 131/78
[2020-01-15] MEDS ORDERED: INSULIN LISPRO 300 UNITS/3 ML VIAL. SQ SCH (11:30)
[2020-01-15] MEDS ORDERED: OSEL30CA PO (13:20)
--- NOTE | 2020-01-15 13:24 | PDOC3 ---
Discharge Summary Visit Information Date of Admission: Jan 12, 2020 Date of Discharge: Jan 15, 2020 Admitting Diagnosis: Influenza A Final Diagnosis Problems Medical Problems: (1) Fever Status: Acute (2) Hyperglycemia Status: Acute (3) Influenza A Status: Acute Brief Hospital Course Allergies Allergies Coded Allergies Type Severity Reaction Last Updated Verified No Known Drug Allergies 04/29/16 No Vital Signs Vital Signs Date Time Temp Pulse Resp B/P (MAP) Pulse Ox O2 Delivery O2 Flow Rate FiO2 01/15/20 11:00 98.4 70 16 131/78 (95) 96 Room Air 98.4 Lab Results Laboratory Tests Test 01/13/20 16:58 01/13/20 21:35 01/14/20 03:35 01/14/20 08:00 Glucose (Fingerstick) 197 mg/dL (70-99) 90 mg/dL (70-99) 241 mg/dL (70-99) White Blood Count 4.1 x10^3/uL (4.0-11.0) Red Blood Count 3.37 x10^6/uL (3.50-5.40) Hemoglobin 10.7 g/dL (12.0-15.5) Hematocrit 31.2 % (36.0-47.0) Mean Corpuscular Volume 92 fL (79-100) Mean Corpuscular Hemoglobin 32 pg (25-35) Mean Corpuscular Hemoglobin Concent 34 g/dL (31-37) Red Cell Distribution Width 13.9 % (11.5-14.5) Platelet Count 150 x10^3/uL (140-400) Neutrophils (%) (Auto) 52 % (31-73) Lymphocytes (%) (Auto) 37 % (24-48) Monocytes (%) (Auto) 9 % (0-9) Eosinophils (%) (Auto) 2 % (0-3) Basophils (%) (Auto) 0 % (0-3) Neutrophils # (Auto) 2.1 x10^3/uL (1.8-7.7) Lymphocytes # (Auto) 1.5 x10^3/uL (1.0-4.8) Monocytes # (Auto) 0.4 x10^3/uL (0.0-1.1) Eosinophils # (Auto) 0.1 x10^3/uL (0.0-0.7) Basophils # (Auto) 0.0 x10^3/uL (0.0-0.2) Sodium Level 139 mmol/L (136-145) Potassium Level 2.9 mmol/L (3.5-5.1) Chloride Level 100 mmol/L (98-107) Carbon Dioxide Level 28 mmol/L (21-32) Anion Gap 11 (6-14) Blood Urea Nitrogen 33 mg/dL (7-20) Creatinine 1.5 mg/dL (0.6-1.0) Estimated GFR (Cockcroft-Gault) 41.7 Glucose Level 174 mg/dL (70-99) Calcium Level 8.7 mg/dL (8.5-10.1) Test 01/14/20 12:00 01/14/20 12:40 01/14/20 17:23 01/14/20 20:17 Glucose (Fingerstick) 96 mg/dL (70-99) 210 mg/dL (70-99) 175 mg/dL (70-99) Sodium Level 139 mmol/L (136-145) Potassium Level 2.8 mmol/L (3.5-5.1) Chloride Level 101 mmol/L (98-107) Carbon Dioxide Level 30 mmol/L (21-32) Anion Gap 8 (6-14) Blood Urea Nitrogen 32 mg/dL (7-20) Creatinine 1.7 mg/dL (0.6-1.0) Estimated GFR (Cockcroft-Gault) 36.1 Glucose Level 110 mg/dL (70-99) Calcium Level 8.9 mg/dL (8.5-10.1) Test 01/15/20 03:45 01/15/20 03:48 01/15/20 08:05 01/15/20 11:36 Sodium Level 141 mmol/L (136-145) Potassium Level 3.4 mmol/L (3.5-5.1) Chloride Level 105 mmol/L (98-107) Carbon Dioxide Level 26 mmol/L (21-32) Anion Gap 10 (6-14) Blood Urea Nitrogen 27 mg/dL (7-20) Creatinine 1.3 mg/dL (0.6-1.0) Estimated GFR (Cockcroft-Gault) 49.1 Glucose Level 200 mg/dL (70-99) Calcium Level 8.4 mg/dL (8.5-10.1) White Blood Count 3.4 x10^3/uL (4.0-11.0) Red Blood Count 3.23 x10^6/uL (3.50-5.40) Hemoglobin 10.2 g/dL (12.0-15.5) Hematocrit 30.0 % (36.0-47.0) Mean Corpuscular Volume 93 fL (79-100) Mean Corpuscular Hemoglobin 32 pg (25-35) Mean Corpuscular Hemoglobin Concent 34 g/dL (31-37) Red Cell Distribution Width 13.7 % (11.5-14.5) Platelet Count 150 x10^3/uL (140-400) Neutrophils (%) (Auto) 41 % (31-73) Lymphocytes (%) (Auto) 43 % (24-48) Monocytes (%) (Auto) 10 % (0-9) Eosinophils (%) (Auto) 5 % (0-3) Basophils (%) (Auto) 1 % (0-3) Neutrophils # (Auto) 1.4 x10^3/uL (1.8-7.7) Lymphocytes # (Auto) 1.5 x10^3/uL (1.0-4.8) Monocytes # (Auto) 0.3 x10^3/uL (0.0-1.1) Eosinophils # (Auto) 0.2 x10^3/uL (0.0-0.7) Basophils # (Auto) 0.0 x10^3/uL (0.0-0.2) Platelet Estimate Adequate (ADEQUATE) Large Platelets Few Giant Platelets Occ Glucose (Fingerstick) 229 mg/dL (70-99) 108 mg/dL (70-99) Laboratory Tests Test 01/14/20 17:23 01/14/20 20:17 01/15/20 03:45 01/15/20 03:48 Glucose (Fingerstick) 210 mg/dL (70-99) 175 mg/dL (70-99) Sodium Level 141 mmol/L (136-145) Potassium Level 3.4 mmol/L (3.5-5.1) Chloride Level 105 mmol/L (98-107) Carbon Dioxide Level 26 mmol/L (21-32) Anion Gap 10 (6-14) Blood Urea Nitrogen 27 mg/dL (7-20) Creatinine 1.3 mg/dL (0.6-1.0) Estimated GFR (Cockcroft-Gault) 49.1 Glucose Level 200 mg/dL (70-99) Calcium Level 8.4 mg/dL (8.5-10.1) White Blood Count 3.4 x10^3/uL (4.0-11.0) Red Blood Count 3.23 x10^6/uL (3.50-5.40) Hemoglobin 10.2 g/dL (12.0-15.5) Hematocrit 30.0 % (36.0-47.0) Mean Corpuscular Volume 93 fL (79-100) Mean Corpuscular Hemoglobin 32 pg (25-35) Mean Corpuscular Hemoglobin Concent 34 g/dL (31-37) Red Cell Distribution Width 13.7 % (11.5-14.5) Platelet Count 150 x10^3/uL (140-400) Neutrophils (%) (Auto) 41 % (31-73) Lymphocytes (%) (Auto) 43 % (24-48) Monocytes (%) (Auto) 10 % (0-9) Eosinophils (%) (Auto) 5 % (0-3) Basophils (%) (Auto) 1 % (0-3) Neutrophils # (Auto) 1.4 x10^3/uL (1.8-7.7) Lymphocytes # (Auto) 1.5 x10^3/uL (1.0-4.8) Monocytes # (Auto) 0.3 x10^3/uL (0.0-1.1) Eosinophils # (Auto) 0.2 x10^3/uL (0.0-0.7) Basophils # (Auto) 0.0 x10^3/uL (0.0-0.2) Platelet Estimate Adequate (ADEQUATE) Large Platelets Few Giant Platelets Occ Test 01/15/20 08:05 01/15/20 11:36 Glucose (Fingerstick) 229 mg/dL (70-99) 108 mg/dL (70-99) Brief Hospital Course Ms Merrill is a 69 year old female with history of hypertension, diabetes type 2, who presents to the ED 01/12/2020 complaining of a cough, body aches, chills, intermittent generalized headache, symptoms began 2 days ago. Patient denies any chest pain or shortness of breath. She reports that her with MS has been is admitted at [facility] for influenza. She tested positive for influenza A, admitted for sepsis related to this. : Pt resting comfortably in bed, NAD. Continues to reports body aches. Will monitor progress. 01/13:Pt laying comfortably in bed NAD. She denies Body aches, saying she feels better. Her BP dropped to the 90s systolic after receiving a dose of carvedilol yesterday. She is normotensive now. She reports being on all 4 BP medications for a long time with out hypotensive episodes/dizziness. Feeling much better, insulin and BP meds adjusted. She wishes to go home to recover. Slept well last night. Problem List: Influenza, Type A DM2 HLD HTN Greater than 30 minutes spent on d/c Discharge Information Condition at Discharge: Improved (1) Follow Up: Weeks Disposition/Orders: D/C to Home (1) Scheduled Amlodipine Besylate (Norvasc) 10 Mg Tablet, 1 TAB PO DAILY, #30 Ref 5 (Reported) Entered as Reported by: CHLOE SIMMS on 04/01/151316 Last Action: Continued on 01/13/20417 by LIBERTAD RAMÍREZ Carvedilol (Coreg) 25 Mg Tablet, 1 TAB PO BID, #60 Ref 5 (Reported) Entered as Reported by: CHLOE SIMMS on 04/01/151316 Last Action: Converted on 01/13/20417 by LIBERTAD RAMÍREZ Ezetimibe (Zetia) 10 Mg Tablet, 1 TAB PO DAILY, #30 Ref 5 (Reported) Entered as Reported by: CHLOE SIMMS on 04/01/151316 Last Action: Reviewed on 01/12/20 183 by PATSY NEGRO RN Insulin Lispro (Humalog) 100 Unit/1 Ml Vial, 50 UNIT SQ DAILYWBKFT for hyperglycemia , (Reported) Entered as Reported by: MAURA PEREZ on 01/13/20 0730 Last Action: Continued on 01/13/20 0755 by MAURA PEREZ Insulin Lispro (Humalog) 100 Unit/1 Ml Vial, 35 UNIT SQ DAILYWSUP for hyperglycemia, (Reported) Entered as Reported by: MAURA PEREZ on 01/13/20 0730 Last Action: Continued on 01/13/20 0755 by MAURA PEREZ Metformin Hcl (Metformin Hcl) 500 Mg Tablet, 500 MG PO BIDWMEALS for ANTI- DIABETIC, Ref 0 (Reported) Entered as Reported by: PATSY NEGRO RN on 01/12/201838 Last Action: New Order on 01/12/201838 by PATSY NEGRO RN Oseltamivir Phosphate (Tamiflu) 30 Mg Capsule, 30 MG PO BID for Influenza A for 4 Days, #8 Prescribed by: BONG LIAO MD on 01/15/20 1320 Potassium Chloride (Klor-Con 10) 10 Meq Tablet.er, 10 MEQ PO BID for , (Reported) Entered as Reported by: PATSY NEGRO RN on 01/12/201838 Last Action: Converted on 01/15/20818 by BONG LIAO MD Rosuvastatin Calcium (Crestor) 40 Mg Tablet, 1 TAB PO DAILY, #30 Ref 5 (Reported) Entered as Reported by: CHLOE SIMMS on 04/01/151316 Last Action: Converted on 01/15/20818 by BONG LIAO MD Valsartan/Hydrochlorothiazide (Diovan Hct 320-12.5 Mg Tab) 1 Each Tablet, 1 TAB PO DAILY, #90 Ref 1 (Reported) Entered as Reported by: CHLOE SIMMS on 04/01/151316 Last Action: Converted on 01/13/20 0418 by LIBERTAD RAMÍREZ Discontinued Medications Glyburide (Glyburide) 5 Mg Tablet, 1 TAB PO BID, #60 Ref 5 (Reported) Entered as Reported by: CHLOE SIMMS on 04/01/151316 Last Action: Discontinued on 01/12/201838 by PATSY NEGRO RN Metformin Hcl (Metformin Hcl) 1,000 Mg Tablet, 1 TAB PO HS, #60 Ref 5 (Reported) Entered as Reported by: CHLOE SIMMS on 04/01/151316 Last Action: Discontinued on 01/12/201838 by PATSY NEGRO RN Spironolactone (Spironolactone) 25 Mg Tablet, 1 TAB PO DAILY, #90 Ref 1 (Reported) Entered as Reported by: CHLOE SIMMS on 04/01/151316 Last Action: Discontinued on 01/12/201838 by PATSY NEGRO RN Verapamil Hcl (Verapamil Er) 240 Mg Cap24h.pel, 1 CAP PO DAILY, #30 Ref 5 (Reported) Entered as Reported by: CHLOE SIMMS on 04/01/151316 Last Action: Discontinued on 01/12/201838 by PATSY NEGRO RN [facility] Jan 15, 2020 13:24
[2020-01-15] MEDS ORDERED: ATORVASTATIN CALCIUM 40 MG TABLET. PO SCH (21:00)
== END 2020-01-15 14:20 | disposition home or self-care (01) | DRG 872 ==
LOC: ER 10:54 → 5 SOUTH 16:09
PROVIDERS: ADMIT Internal Medicine; ATTEND Internal Medicine
DX: A41.9 Sepsis, unspecified organism (principal); J10.1 Influenza due to other identified influenza virus with other respiratory manifestations; I10 Essential (primary) hypertension; E11.65 Type 2 diabetes mellitus with hyperglycemia; E78.5 Hyperlipidemia, unspecified; Z82.49 Family history of ischemic heart disease and other diseases of the circulatory system; Z98.51 Tubal ligation status
CPT/HCPCS: 36415; 71045; 80048; 80053; 82553; 82962; 83605; 83735; 83880; 84145; 84443; 84484; 85025; 85610; 85730; 87040; 87804; 93005; 94640; 96361; 96374; 99285; J1815; J2930; J7030; G0378